=== PATIENT | male | born 1965 | race Hispanic/Latino ===

== ENCOUNTER → 2020-04-29 | Outpatient (CLI) | payer BC, OTHER ==
[~2020-04-29] MED LIST: CYCLOBENZAPRINE10 MG PO; FUROSEMIDE40 MG PO; HYDRALAZINE HCL10 MG PO; IBUPROFEN400 MG PO; ISOSORBIDE MONO30 MG PO
== END ==
LOC: RAD 05:00 → EDSTATUS 05-03 09:30
PROVIDERS: ATTEND Internal Medicine Gastroenterology
DX: U07.1 COVID-19 (principal); Z12.11 Encounter for screening for malignant neoplasm of colon; Z01.818 Encounter for other preprocedural examination
CPT/HCPCS: 93005; U0002